=== PATIENT | male | born 1975 | race Caucasian/White ===

== ENCOUNTER 2024-10-12 18:37 | Emergency (ER) | payer MEDICAID, SELFPAY ==
--- NOTE | 2024-10-12 18:42 | EKG_ITS ---
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
[2024-10-12 19:54] VITALS: BP 153/92; PULSE 56; RESP 18; TEMP 36.9; O2SAT 99; BMI 42.5
--- NOTE | 2024-10-12 20:05 | XR_ITS ---
Examination: PA lateral chest 2 views Technique: Upright PA lateral chest 2 views Exam date and time: October 12, 20242012 hrs. Comparison May 19, 2022 Indications: Low heart rate, bradycardia high blood pressure today Findings: Normal heart size The lungs are clear. The osseous structures are intact Impression: No active disease
--- NOTE | 2024-10-12 20:05 | EDRME_ITS ---
Rapid Medical Screening Exam [facility] Arrival date/time: 10/12/24 18:37 48M with history of Meniere's disease (on hydralazine BID; no recent dose changes) presents to ED with 1 day of slow resting HR (mid 50s). Patient also has a LENNON, but denies dizziness, weakness, AMS, CP, SOB, and fall/trauma. Chief Complaint: General Adult/Misc Complain Vital signs: Vital Signs Temperature 98.5 F 10/12/24 19:54 Pulse Rate 56 L 10/12/24 19:54 Respiratory Rate 18 10/12/24 19:54 Blood Pressure 153/92 H 10/12/24 19:54 Pulse Oximetry (%) 99 10/12/24 19:54 Oxygen Delivery Method Room Air 10/12/24 19:54
[2024-10-12 20:29] VITALS: BP 168/95; PULSE 57; RESP 17; TEMP 36.8; O2SAT 98
[2024-10-12 20:43] LABS: Basophils # (Auto) 0.1 Thou/mm3 (0.0-0.2); Basophils % (Auto) 1 % (0-2.5); Eosinophils # (Auto) 0.1 Thou/mm3 (0.0-0.5); Eosinophils % (Auto) 1 % (0-10); Hematocrit 49.2 % (41.0-53.0); Hemoglobin 17.1 g/dL (13.5-16.0); Immature Granulocytes % (Auto) 0 % (0-0); Immature Granulocytes Auto 0.01 Thou/mm3 (0.00-0.00); Lymphocytes # (Auto) 1.9 Thou/mm3 (1.0-4.8); Lymphocytes % (Auto) 24 % (10-50); Mean Corpuscular HGB Conc 34.8 g/dl (31.0-37.0); Mean Corpuscular Hemoglobin 32.8 pg (25.0-35.0); Mean Corpuscular Volume 94 fL (80-100); Monocytes # (Auto) 0.6 Thou/mm3 (0.0-0.8); Monocytes % (Auto) 7 % (0-12); Neutrophils # (Auto) 5.5 Thou/mm3 (1.8-7.7); Neutrophils % (Auto) 68 % (37-80); Nucleated Red Blood Cell % 0 /100 WBC (0); Platelet Count 156 Thou/mm3 (140-440); RDW Standard Deviation 45.7 fL (35.1-43.9); Red Blood Count 5.21 Miln/mm3 (4.50-5.90); White Blood Count 8.1 Thou/mm3 (3.8-10.6)
--- NOTE | 2024-10-12 20:45 | PD.EDADULT ---
ED General RME/HPI General Chief complaint: General Adult/Misc Complain Stated complaint: heart rate low/ b p is high Time Seen by Provider: 10/12/24 20:31 Arrival date/time: 10/12/24 18:37 CC: Bradycardia HPI patient noticed he was bradycardic by looking at his Apple Watch today, patient no knowledge that he was bradycardic before patient takes hydralazine for hypertension, but denies any lightheadedness dizziness altered mentation falls shortness of breath or difficulty breathing. Patient has no specific other complaints. The patient uses CPAP is morbidly obese. But no other specific complaints. RME / HPI RME / HPI narrative: 10/12/24 18:37 48M with history of Meniere's disease (on hydralazine BID; no recent dose changes) presents to ED with 1 day of slow resting HR (mid 50s). Patient also has a LENNON, but denies dizziness, weakness, AMS, CP, SOB, and fall/trauma. Related Data Home Medications ?Medication ?Instructions ?Recorded ?Confirmed hydralazine 25 mg tablet 25 mg PO BID 12/06/20 12/06/20 Previous Rx's ?Medication ?Instructions ?Recorded albuterol sulfate 90 mcg/actuation 2 puff inhalation QID PRN 10/02/20 aerosol inhaler shortness of breath or wheezing #18 grams budesonide-formoterol HFA 80 2 puff inhalation BID #10.2 grams 10/09/20 mcg-4.5 mcg/actuation aerosol inhaler (Symbicort) Allergies Allergy/AdvReac Type Severity Reaction Status Date / Time No Known Allergies Allergy Verified 10/12/24 18:39 Review of Systems Review of Systems Narrative Review of Systems: GEN: No fever, no chills, no weight loss EYES: No discharge, no visual changes, no pain HEENT: No ear pain, no congestion, no sore throat PULM: No shortness of breath, no cough, no congestion CV: No chest pain, no dyspnea on exertion, no palpitations GI: No nausea, no vomiting, no diarrhea, no pain, no constipation : No frequency, no urgency, no dysuria MUSC/SKEL: No joint pain, no back pain SKIN: No rash PSYCH: No hallucinations, no depression HEME/LYMPH: No easy bleeding or bruising tendencies NEURO: No weakness, no headache Past Medical History Past Medical History NEUROLOGIC: Negative Neurological Disorders or Seizures CARDIAC: Positive Hypertension; Negative Cardiac Disorders or Congestive Heart Failure RESPIRATORY: Positive Asthma and Sleep Apnea; Negative Chronic Obstructive Pulmonary Disease (COPD) GASTROINTESTINAL: Positive Gastrointestinal Disorders and Obesity GENITOURINARY: Negative Genitourinary Disorders or Renal Disease MUSCULOSKELETAL: Positive Musculoskeletal Disorders and Arthritis ENDOCRINE: Negative Endocrine Disorders, Diabetes Mellitus Type 1 or Diabetes Mellitus Type 2 HEMATOLOGIC: Negative Blood Disorders or Sickle Cell Disease OTHER HISTORY: Negative Hospitalization, Autoimmune Disease, Shingles, Falls, Blood Transfusions, Anesthesia Reactions, Chemotherapy, Radiation Therapy or MRSA Family History FAMILY HISTORY: Positive Family Respiratory Disorders, Family Cardiac Disorders and Family Surgery; Negative Family Psychiatric Problems, Family Gastrointestinal Problems, Family Cancer or Family Anesthesia Reaction Surgical History SURGICAL: Positive Ear Surgery and Gastric Bypass Surgery Social History SMOKING STATUS: Never smoker SUBSTANCE USE: does not use ED Exam Narrative Physical exam: [General: Morbidly obese not in any acute distress Head normocephalic HEENT: Within acceptable limits Neck is supple nontender Chest equal chest rise nontender to palpation Respiratory: Clear to auscultation no wheezes crackles or rubs CV: Rate rhythm is regular, bradycardic, no murmurs rubs or clicks Abdomen is distended secondary to body habitus soft nontender no masses positive bowel sounds all 4 quadrants Back: No CVA tenderness no spinous process tenderness from cervical spine thoracic and lumbar spine Skin: Intact no petechiae rash induration ulceration or crepitus Extremities: Moving all extremity against resistance cap refill less than 2 seconds neurosensory intact Neuro: Awake alert oriented x3 Glascow coma 15 no focal deficits] Course Quality Measures none Orders Category Date Time Status EKG (ED ONLY) *Do not use* NOW Care 10/12/24 18:42 Completed EKG (ED Only) Stat Exams 10/12/24 18:42 Draft XR chest 1V portable Stat Exams 10/12/24 20:05 Completed B-Type Natriuretic Peptide Stat Lab 10/12/24 20:16 Completed CBC Stat Lab 10/12/24 20:16 Completed Comprehensive Metabolic Panel Stat Lab 10/12/24 20:16 Completed Drug Screen,Urine Stat Lab 10/12/24 20:14 Completed Troponin I Stat Lab 10/12/24 20:16 Completed Vital Signs Vital signs: Vital Signs Temperature 98.5 F 10/12/24 19:54 Pulse Rate 56 L 12/04/24 19:54 Respiratory Rate 18 10/12/24 19:54 Blood Pressure 153/92 H 10/12/24 19:54 Pulse Oximetry (%) 99 10/12/24 19:54 Oxygen Delivery Method Room Air 10/12/24 19:54 [facility] Patient data External records reviewed:: [facility] previous records Clinical information provided by:: patient Social determinants that could affect healthcare access:: none Patient has the following chronic illnesses:: Hypertension morbidly obese How is presenting disease/condition affected by chronic disease/condition?: exacerbated by Evaluation data The following diagnostics were reviewed and interpreted by me:: lab results, radiology exam(s) and EKG tracing(s) Lab and/or radiology exams considered but not ordered:: EKG performed at 1955 shows a ventricular rate of 5 6 MI interval 165 QRS 100 QTc of 434 this is sinus bradycardia. Interpretation Summary: Bradycardia asymptomatic Medications Medications considered but not ordered:: None Medication administrations:: None Consultations Consultation(s) initiated? (list below): No Diagnosis Differential Diagnosis ED Complaint MDM: Symptomatic bradycardia sick sinus syndrome Most likely diagnosis given after review of the tests above:: Bradycardia Admission Indicated Admission indicated?: not indicated Explain why admission is indicated or not indicated:: Stable for outpatient follow-up Admission Request Was there a request for admission?: No Disposition Plan Disposition Plan: Discharge Discharge Attestation Discharge Attestation: The patient and all family members were given an opportunity to ask questions and understood the discharge instructions. Discharge instructions specifically effects, indications for sooner follow up or return to the emergency department, and the expected course of current diagnosis. Patient condition: Stable Medical Decision Making Differential Diagnosis Differential Diagnosis: Symptomatic bradycardia sick sinus syndrome Lab Data 10/12/24 20:16 10/12/24 20:16 Labs: Lab Results 10/12/24 10/12/24 Range/Units 20:14 20:16 WBC 8.1 (3.8-10.6) Thou/mm3 RBC 5.21 (4.50-5.90) Miln/mm3 Hgb 17.1 H (13.5-16.0) g/dL Hct 49.2 (41.0-53.0) % MCV 94 (80-100) fL MCH 32.8 (25.0-35.0) pg MCHC 34.8 (31.0-37.0) g/dl RDW Std Deviation 45.7 H (35.1-43.9) fL Plt Count 156 (140-440) Thou/mm3 Neut % (Auto) 68 (37-80) % Lymph % (Auto) 24 (10-50) % [place] % (Auto) 7 (0-12) % Eos % (Auto) 1 (0-10) % Baso % (Auto) 1 (0-2.5) % Neut # (Auto) 5.5 (1.8-7.7) Thou/mm3 Lymph # (Auto) 1.9 (1.0-4.8) Thou/mm3 [place] # (Auto) 0.6 (0.0-0.8) Thou/mm3 Eos # (Auto) 0.1 (0.0-0.5) Thou/mm3 Baso # (Auto) 0.1 (0.0-0.2) Thou/mm3 Immature Gran # (Auto) 0.01 H (0.00-0.00) Thou/mm3 Absolute Nucleated RBC 0.00 (0.00-0.00) Thou/mm3 Immature Gran % 0 (0-0) % Nucleated RBC % 0 (0) /100 WBC Sodium 137 (136-145) mMol/L Potassium 4.2 (3.4-5.1) mMol/L Chloride 100 (98-107) mMol/L Carbon Dioxide 28.1 (20.0-31.0) mMol/L Anion Gap 9 (7-16) BUN 12 (9-23) mg/dL Creatinine 0.9 (0.6-1.3) mg/dL Estim Creat Clear Calc 160.5 (>60) mL/min eGFR > 60 (60 - ) See Note BUN/Creatinine Ratio 13 (12-20) Ratio Glucose 90 (74-106) mg/dL Calculated Osmolality 273 L (275-295) Calcium 9.6 (8.3-10.6) mg/dL Corrected Calcium 9.6 (8.5-10.1) mg/dL Total Bilirubin 0.7 (0.3-1.2) mg/dL AST 10 (0-34) U/L ALT 14 (10-49) U/L Alkaline Phosphatase 71 (46-116) U/L Troponin I < 0.020 (0.0-0.045) ng/mL B-Natriuretic Peptide < 20 (0-100) pg/mL Total Protein 7.8 (5.7-8.2) gm/dL Albumin 4.8 (3.5-5.0) gm/dL Globulin 3.0 (2.3-3.5) gm/dL Albumin/Globulin Ratio 1.6 (1.2-2.2) Urine Opiates Screen Negative (Negative) Urine Fentanyl Screen Negative (Negative) Ur Barbiturates Screen Negative (Negative) U Amphetamin/Meth Scrn Negative (Negative) U Benzodiazepines Scrn Negative (Negative) U Cocaine Metab Screen Negative (Negative) U Marijuana (THC) Screen Negative (Negative) Discharge Plan Plan Patient Disposition: HOME (Self Care) Patient condition on transfer: Stable Prescriptions/Referrals Prescriptions/Med Rec: No Action hydralazine 25 mg Tablet 25 mg PO BID albuterol sulfate 90 mcg/actuation HFA aerosol inhaler 2 puff inhalation QID PRN (Reason: shortness of breath or wheezing) Qty: 18 0RF budesonide-formoterol [Symbicort] 80-4.5 mcg/actuation HFA aerosol inhaler 2 puff inhalation BID Qty: 10.2 0RF Referrals: Herman Lomax MD [Physician] - In 1 week Problem List Clinical Impression: Bradycardia Patient/Caregiver Discharge Instructions Education Materials: ED Bradycardia Additional Instructions: If there is symptomatic bradycardia where you become dizzy lightheadedness losing balance please return the emergency room for reevaluation otherwise follow-up promptly with the supervisor tan room listed above. Print Language: Montenegrin Stand Alone Forms: Ghislaine Award Info., Work/School Release, Patient Portal Info Letter PA/MELANIE Supervising Physician PA/MELANIE Supervising Physician: Dom Heredia ENP
[2024-10-12 20:50] LABS: B-Type Natriuretic Peptide < 20 pg/mL (0-100)
[2024-10-12 20:54] LABS: Amphetamine/Methamp Scrn,U Negative (Negative); Barbiturate Screen,Urine Negative (Negative); Benzodiazepines Screen,Urine Negative (Negative); Benzoylecgonine Screen, Ur Negative (Negative); Fentanyl Screen,Urine Negative (Negative); Opiate Screen,Urine Negative (Negative); THC Screen,Urine Negative (Negative)
[2024-10-12 21:08] LABS: Alanine Aminotransferase 14 U/L (10-49); Albumin, Serum 4.8 gm/dL (3.5-5.0); Albumin/Globulin Ratio 1.6 (1.2-2.2); Alkaline Phosphatase 71 U/L (46-116); Anion Gap 9 (7-16); Aspartate Amino Transferase 10 U/L (0-34); BUN/Creatinine Ratio 13 Ratio (12-20); Bilirubin,Total 0.7 mg/dL (0.3-1.2); Blood Urea Nitrogen 12 mg/dL (9-23); Calcium 9.6 mg/dL (8.3-10.6); Calcium (Corrected) 9.6 mg/dL (8.5-10.1); Carbon Dioxide 28.1 mMol/L (20.0-31.0); Chloride 100 mMol/L (98-107); Creatinine (Component) 0.9 mg/dL (0.6-1.3); Estimated Creatinine Clearance 160.5 mL/min (>60); Glucose 90 mg/dL (74-106); Osmolality,Calculated 273 (275-295); Potassium 4.2 mMol/L (3.4-5.1); Sodium 137 mMol/L (136-145); Total Protein 7.8 gm/dL (5.7-8.2); eGFR > 60 See Note
[2024-10-12 21:21] LABS: Troponin I < 0.020 ng/mL (0.0-0.045)
[2024-10-12 21:36] VITALS: BP 172/96; PULSE 52; RESP 16; TEMP 36.8; O2SAT 99
== END 2024-10-12 21:36 | disposition home or self-care (01) ==
LOC: SERX 21:48
PROVIDERS: Physician Assistant; Emergency Provider Emergency Medicine; PCP Physician Assistant
DX: R00.1 Bradycardia, unspecified (principal); I10 Essential (primary) hypertension; H81.09 Meniere's disease, unspecified ear; E66.01 Morbid (severe) obesity due to excess calories; Z68.41 Body mass index [BMI] 40.0-44.9, adult
CPT/HCPCS: 36415; 71045; 80053; 80307; 83880; 84484; 85025; 93005; 99283

== ENCOUNTER → 2025-04-25 | Outpatient (CLI) | payer MEDICAID, SELFPAY ==
--- NOTE | 2025-04-25 09:53 | XR_ITS ---
Examination: Knee, left , 3 views, left tibia-fibula 2 views Technique: Knee AP, lateral, oblique 3 views, AP lateral tibia fibula 2 views total 5 views Date and time of exam: April 25, 2025 1052 hours INDICATIONS: Persistent knee and lower leg pain years FINDINGS: Healed fractures distal tibial fibular shaft Intramedullary tibial zuly satisfactory position Advanced knee tricompartment osteoarthritis with multiple ossified joint bodies posterior joint space IMPRESSION: Advanced tricompartment osteoarthritis knee
--- NOTE | 2025-04-25 09:53 | XR_ITS ---
Examination: Foot, right, 3 views Technique: AP, oblique, lateral views foot, 3 views Date and time of exam: April 25, 2025 1052 hours INDICATIONS: Foot pain beginning 15 years ago. FINDINGS: Extensive tarsal fusion Sideplate tarsal fourth metatarsal with fracture of one of the proximal screws Advanced osteoarthritis talonavicular joint Moderate narrowing tibiotalar joint No acute fracture IMPRESSION: Extensive tarsal metatarsal fusion Advanced osteoarthritis talonavicular joint
== END | disposition home or self-care (01) ==
LOC: CDIM 09:48
PROVIDERS: PCP Physician Assistant; Referring Provider Physician Assistant; Visit Provider Physician Assistant
DX: M19.071 Primary osteoarthritis, right ankle and foot (principal); M17.12 Unilateral primary osteoarthritis, left knee
CPT/HCPCS: 73562; 73630

== ENCOUNTER 2025-06-29 08:53 | Outpatient (AMB) | payer MEDICAID, SELFPAY ==
[2025-06-29 09:06] VITALS: BP 138/84; PULSE 70; RESP 18; TEMP 36.1; O2SAT 95; BMI 42.0
--- NOTE | 2025-06-29 09:06 | PD.ORTHCLVIS ---
Vital signs 06/29/25 09:06 Height 1.93 m Height Method Measured Weight 156.745 kg Weight Measurement Method Standing Scale BMI 42.0 BP 138/84 H Blood Pressure Source Automatic Cuff Blood Pressure Location Left Upper Arm Position Sitting Respiration 18 Pulse 70 Pulse Source Monitor Temp 96.9 F Temp Source Temporal Artery Scan Pulse Oximetry (%) 95 Oxygen Delivery Method Room Air Med/Allergies Allergies & Medications Allergies No Known Allergies Allergy (Verified 06/29/25 09:11) Medication Reconciliation albuterol sulfate 90 mcg/actuation aerosol inhaler 2 puff inhalation QID PRN shortness of breath or wheezing #18 grams 10/02/20 [Rx Confirmed 06/29/25] budesonide-formoterol HFA 80 mcg-4.5 mcg/actuation aerosol inhaler (Symbicort) 2 puff inhalation BID #10.2 grams 10/09/20 [Rx Confirmed 06/29/25] hydralazine 25 mg tablet 25 mg PO BID 12/06/20 [History Confirmed 06/29/25] Exam Exam Patient is in no acute distress and is cooperative with the examination today. Breathing is nonlabored. Patient has a normal mood and affect. Bilateral extremities were evaluated and demonstrates sensation intact to light touch. Palpable pedal pulses are present. No significant edema is present. Bilateral hips were examined. The patient has no pain with log roll of the hips. Internal rotation to 30 degrees and external rotation to 30 degrees is painless. Negative FADIR. Right knee was examined today. The right knee is in reasonable alignment. Range of motion from 0-120 degrees. Knee is stable to varus and valgus as well as AP translation with <5mm. Patient has a negative McMurrays. There is no pain with patellofemoral compression and no crepitus noted. The knee is nontender to palpation. Left knee was examined today. The left knee is in varus alignment. Range of motion from 0-115 degrees. Knee is stable to varus and valgus as well as AP translation with <5mm. Patient has a negative McMurrays. There is no pain with patellofemoral compression and no crepitus noted. The knee is tender to palpation medially. X-rays demonstrate the tibial nail with the union in the middle one third of the tibial shaft. This is completely healed. 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 The pain has been ongoing for quite a while.. He has yepx-ca-wzap arthritis. I do think we will do a knee replacement without removing the nail. At some point we would need to get a CT scan. This was a great case for a robot given the intramedullary object in his tibia. He would need to lose weight as his BMI is currently 42. His goal weight loss is another 20 pounds. We discussed with this with him in great detail he has had multiple injections including over 6 We will see him back if he can potentially lose weight Office Procedures GNS Level of Care Nursing/Assessment Patient Status: Initial/New Patient Nursing Assessment/Reassesment: Medication Reconciliation, Orthostatic Vitals, Update PMH in EMR and Vital Signs Coordination of Care: Complex Care and Chronic Disease 1-5, Education Complex Pt/Fam, Consent,records obtained, informed consent, Education Simp Pt/Fam, Lab and Imaging orders, Results/Orders obtained and Staff clarify orders New Patient Charge New Patient Point Assignment: 1134 New Patient Point Charge: CUSTOMS AND IMMIGRATION OFFICER Level 4 ([id number]) MA Intake Visit Data Collection New Patient or Established: Established Patient (seen at [facility] within 3 years) Reason for Visit:: LEFT KNEE PAIN Seen by Clinical Staff ONLY (RN/MA): No Dehairing Machine Tender Required: No PCP or OBGYN visit in last 3 months: Yes Hx Now: No Do You Feel Safe at Home: Yes Authorities Contacted: N/A Questionairres Past Medical History Past Medical History Have you ever been diagnosed with any of the following: Neurological Problems Seizures: No Cardiology Problems Congestive Heart Failure: No Hypertension: Yes Respiratory Problems Chronic Obstructive Pulmonary Disease (COPD): No Asthma: Yes Sleep Apnea: Yes Smoking: No Smoking Cessation Counseling: No Smoking Exposure: No Stomache/Intestinal Problems Obesity: Yes Genital/Urinary Problems Renal Disease: No Musculoskeletal Problems Arthritis: Yes Endocrine Problems Diabetes Mellitus Type 1: No Diabetes Mellitus Type 2: No Blood Problems Sickle Cell Disease: No Other Problems Hospitalization: No Shingles: No Falls: No Blood Transfusions: No Anesthesia Reactions: No Chemotherapy: No Radiation Therapy: No MRSA: No Subjective Visit Visit for: new patient and knee Immunization / Flu Flu Vaccine in the Last 12 Months: No Flu Vaccine Exclusion Criteria: Refused by Patient History of Present Illness Chief complaint: LEFT KNEE PAIN Date of injury / onset of symptoms: 10 YEARS AGO Cirilo is a pleasant 49-year-old male with left knee pain. The pain has been ongoing for a while. 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 Red flag PMH: none BMI Counceling provided: Yes Pain Pain level (0-10): 2 Pain location: inside (medial), outside (lateral), anterior and posterior Pain quality: sharp, dull, aching, burning, shocking, electric and tingling Pain timing: night, increases with activity and stairs Associated signs & symptoms: numbness, weakness and stiffness Ambulatory data Ambulatory device: cane Walking distance (blocks): 1 Treatments Improvement with previous injections: No Improvement with PT: No Improvement with NSAIDS: no Review of Systems Review of Systems: All systems negative unless otherwise noted in HPI.
--- NOTE | 2025-06-29 09:25 | XR_ITS ---
Examination: Bilateral knees 2 views Right lateral knee left lateral knee 2 views Bilateral axial knees single view TECHNIQUE: Bilateral AP knees standing single view, bilateral PA knees standing single view flexion Standing right lateral knee left lateral knee 2 views Bilateral axial knees single view total 5 views Date and time: June 29, 2025 0938 hours INDICATIONS: Bilateral knee pain several years, history tibial fracture on the left 10 years ago. FINDINGS: Moderate osteopenia Moderate narrowing medial joint space and patellofemoral joint space right knee No fracture Left knee advanced tricompartment osteoarthritis, severe narrowing lateral joint space Multiple ossified joint bodies in the posterior joint space left knee, the largest 28 mm IMPRESSION: Advanced left knee tricompartment osteoarthritis
== END 2025-06-29 09:28 | disposition home or self-care (01) ==
LOC: HODSRG 08:53
PROVIDERS: Supervising Provider Orthopaedic Surgery Adult Reconstructive Orthopaedic Surgery; Visit Provider Orthopaedic Surgery Adult Reconstructive Orthopaedic Surgery
DX: M17.12 Unilateral primary osteoarthritis, left knee (principal); M25.562 Pain in left knee; I10 Essential (primary) hypertension; G47.30 Sleep apnea, unspecified; E66.9 Obesity, unspecified; Z71.3 Dietary counseling and surveillance; Z68.41 Body mass index [BMI] 40.0-44.9, adult
CPT/HCPCS: 73564; 99204; G0463

== ENCOUNTER 2025-08-29 10:14 | Outpatient (AMB) | payer MEDICAID, SELFPAY ==
--- NOTE | 2025-08-29 10:39 | ORTHONT_ITS ---
Vital signs 08/29/25 10:40 Height 1.93 m Height Method Measured Weight 154.902 kg Weight Measurement Method Standing Scale BMI 41.5 BP 127/82 Blood Pressure Source Automatic Cuff Blood Pressure Location Left Upper Arm Position Sitting Respiration 18 Pulse 58 L Pulse Source Monitor Temp 97.9 F Temp Source Temporal Artery Scan Pulse Oximetry (%) 97 Oxygen Delivery Method Room Air Med/Allergies Allergies & Medications Allergies No Known Allergies Allergy (Verified 08/29/25 10:41) Medication Reconciliation albuterol sulfate 90 mcg/actuation aerosol inhaler 2 puff inhalation QID PRN sh ortness of breath or wheezing #18 grams 10/02/20 [Rx Confirmed 08/29/25] budesonide-formoterol HFA 80 mcg-4.5 mcg/actuation aerosol inhaler (Symbicort) 2 puff inhalation BID #10.2 grams 10/09/20 [Rx Confirmed 08/29/25] hydralazine 25 mg tablet 25 mg PO BID 12/06/20 [History Confirmed 08/29/25] Exam Exam Patient is in no acute distress and is cooperative with the examination today. Breathing is nonlabored. Patient has a normal mood and affect. Bilateral extremities were evaluated and demonstrates sensation intact to light touch. Palpable pedal pulses are present. No significant edema is present. Bilateral hips were examined. The patient has no pain with log roll of the hips. Internal rotation to 30 degrees and external rotation to 30 degrees is painless. Negative FADIR. Right knee was examined today. The right knee is in reasonable alignment. Range of motion from 0-120 degrees. Knee is stable to varus and valgus as well as AP translation with <5mm. Patient has a negative McMurrays. There is no pain with patellofemoral compression and no crepitus noted. The knee is nontender to palpation. Left knee was examined today. The left knee is in varus alignment. Range of motion from 0-115 degrees. Knee is stable to varus and valgus as well as AP translation with <5mm. Patient has a negative McMurrays. There is no pain with patellofemoral compression and no crepitus noted. The knee is tender to palpation medially. X-rays demonstrate the tibial nail with the union in the middle one third of the tibial shaft. This is completely healed. 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 The pain has been ongoing for quite a while.. He has [id number] arthritis. I do think we will do a knee replacement without removing the nail. At some point we would need to get a CT scan. This was a great case for a robot given the intramedullary object in his tibia. He would need to lose weight as his BMI is currently 42. His goal weight loss is another 15 pounds. We discussed with this with him in great detail he has had multiple injections including over 6 We will see him back if he can potentially lose weight Office Procedures GNS Level of Care Nursing/Assessment Patient Status: Established Patient Nursing Assessment/Reassesment: Medication Reconciliation, Update PMH in EMR and Vital Signs Coordination of Care: Complex Care and Chronic Disease 1-5, Education Complex Pt/Fam, Consent,records obtained, informed consent, Results/Orders obtained and Staff clarify orders Established Patient Charge Established Patient Point Assignment: 95 Established Patient Point Charge: EP Level 3 (80-115) MA Intake Visit Data Collection New Patient or Established: Established Patient (seen at [facility] within 3 years) Reason for Visit:: LEFT KNEE PAIN Seen by Clinical Staff ONLY (RN/MA): No 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 Required: No PCP or OBGYN visit in last 3 months: Yes Hx Now: No Do You Feel Safe at Home: Yes Authorities Contacted: N/A Questionairres Past Medical History Past Medical History Have you ever been diagnosed with any of the following: Neurological Problems Seizures: No Cardiology Problems Congestive Heart Failure: No Hypertension: Yes Respiratory Problems Chronic Obstructive Pulmonary Disease (COPD): No Asthma: Yes Sleep Apnea: Yes Smoking: No Smoking Cessation Counseling: No Smoking Exposure: No Stomache/Intestinal Problems Obesity: Yes Genital/Urinary Problems Renal Disease: No Musculoskeletal Problems Arthritis: Yes Endocrine Problems Diabetes Mellitus Type 1: No Diabetes Mellitus Type 2: No Blood Problems Sickle Cell Disease: No Other Problems Hospitalization: No Shingles: No Falls: No Blood Transfusions: No Anesthesia Reactions: No Chemotherapy: No Radiation Therapy: No MRSA: No Subjective Visit Visit for: follow up visit and knee Immunization / Flu Flu Vaccine in the Last 12 Months: No Flu Vaccine Exclusion Criteria: Refused by Patient History of Present Illness Chief complaint: LEFT KNEE PAIN Date of injury / onset of symptoms: 10 YEARS AGO Cirilo is a pleasant 49-year-old male with left knee pain. The pain has been ongoing for a while. He had a tibial tear 15 years ago and was status post nailing His BMI is currently 42. We would like for him to lose another 10 to 15 pounds if possible to get to a BMI of 40. 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 Red flag PMH: none BMI Counceling provided: Yes Pain Pain level (0-10): 2 Pain location: inside (medial), outside (lateral), anterior and posterior Pain quality: sharp, dull, aching, burning, shocking, electric and tingling Pain timing: night, increases with activity and stairs Associated signs & symptoms: numbness, weakness and stiffness Ambulatory data Ambulatory device: cane Walking distance (blocks): 1 Treatments Improvement with previous injections: No Improvement with PT: No Improvement with NSAIDS: no Review of Systems Review of Systems: All systems negative unless otherwise noted in HPI.
[2025-08-29 10:40] VITALS: BP 127/82; PULSE 58; RESP 18; TEMP 36.6; O2SAT 97; BMI 41.5
== END 2025-08-29 10:52 | disposition home or self-care (01) ==
PROVIDERS: PCP Internal Medicine Infectious Disease; Referring Provider Internal Medicine Infectious Disease; Supervising Provider Orthopaedic Surgery Adult Reconstructive Orthopaedic Surgery; Visit Provider Orthopaedic Surgery Adult Reconstructive Orthopaedic Surgery
DX: M25.562 Pain in left knee (principal); M17.12 Unilateral primary osteoarthritis, left knee; E66.9 Obesity, unspecified; Z68.41 Body mass index [BMI] 40.0-44.9, adult
CPT/HCPCS: 99213; G0463